=== PATIENT | female | born 2000 | race American Indian/Alaskan Native ===

== ENCOUNTER 2019-11-25 19:37 | Emergency (ER) | payer SELFPAY ==
--- NOTE | 2019-11-25 21:20 | Event Note ---
ED Screening Note Date of service: 11/25/19 Time: 21:20 ED Screening Note: Pt complains of pelvic pain and vaginal discharge x 1 week +dysuria This initial assessment/diagnostic orders/clinical plan/treatment(s) is/are subject to change based on patients health status, clinical progression and re- assessment by fellow clinical providers in the ED. Further treatment and workup at subsequent clinical providers discretion. Patient/guardian urged not to elope from the ED as their condition may be serious if not clinically assessed and managed. Initial orders include: ACC UA
[2019-11-25 22:19] LABS: HCG Qualitative,Urine Negative (Negative)
[2019-11-25 22:24] LABS: Bilirubin,Urine NEG (Negative); Blood,Urine NEG (Negative); Color,Urine Yellow (Yellow); Mucus,Urine 2+ /HPF; Protein,Urine <15 mg/dL mg/dL (Negative); Urobilinogen,Urine < 2.0 mg/dL (<2.0)
[2019-11-26] MEDS ORDERED: AZITHROMYCIN 250 MG TAB PO ONE (00:33)
[2019-11-26] MEDS ORDERED: LIDOCAINE-MPF (1%) 10 MG/1 ML VIAL 5 ML INFILTRATI ONE (00:33)
--- NOTE | 2019-11-26 00:35 | Emergency Department Report ---
ED Female HPI - General Chief complaint: Urogenital-Female Stated complaint: PELVIC PAIN/STD CHECK Time Seen by Provider: 11/25/19 21:21 Source: patient Mode of arrival: Ambulatory Limitations: No Limitations - History of Present Illness Initial comments: 18-year-old female presents to the ER today complaining of lower abdominal pain, and vaginal discharge. Patient states that her symptoms started 1 week ago. She reports intermittent lower abdominal cramping and sharp pain as well as a white vaginal discharge. She reports mild dysuria. She denies any abnormal vaginal bleeding. She denies any urgency, frequency or hematuria. She reports no low back pain, nausea, vomiting, fever, chills or any other symptoms at this time. Patient states that she would like to be checked for STDs. She denies any known exposure. She reports same sexual partner. Last menstrual cycle was 11/08/2019. She is no longer on control as of 3 months ago. MD Complaint: vaginal discharge, pelvic pain -: week(s) (1) - Related Data Previous Rx's Medication Instructions Recorded Last Taken Type metroNIDAZOLE [Flagyl] 500 mg PO Q12HR #14 tab 11/26/19 Unknown Rx Allergies Allergy/AdvReac Type Severity Reaction Status Date / Time No Known Allergies Allergy Verified 11/26/19 00:46 ED Review of Systems ROS: Stated complaint: PELVIC PAIN/STD CHECK Other details as noted in HPI Constitutional: denies: chills, fever Gastrointestinal: abdominal pain. denies: nausea, vomiting, diarrhea, constipation, hematochezia Genitourinary: dysuria, discharge. denies: urgency, frequency, hematuria, abnormal menses, dyspareunia Musculoskeletal: denies: back pain Neurological: denies: headache, weakness, numbness, paresthesias, confusion, abnormal gait, vertigo ED Past Medical Hx - Past Medical History Previous Medical History?: No - Surgical History Past Surgical History?: No - Social History Smoking Status: Never Smoker - Medications Home Medications: Home Medications Medication Instructions Recorded Confirmed Last Taken Type metroNIDAZOLE [Flagyl] 500 mg PO Q12HR #14 tab 11/26/19 Unknown Rx ED Physical Exam - General Limitations: No Limitations General appearance: alert, in no apparent distress - Head Head exam: Present: atraumatic, normocephalic - Eye Eye exam: Present: normal appearance, PERRL, EOMI Pupils: Present: normal accommodation - GI/Abdominal GI/Abdominal exam: Present: soft. Absent: distended, tenderness, guarding - External exam: Present: normal external exam Speculum exam: Present: vaginal discharge (small amt of white d/c). Absent: cervical discharge, vaginal bleeding, foreign body, tissue, laceration Bi-manual exam: Absent: cervical motion tendernes, adnexal tenderness, adnexal mass, uterine enlargement, uterine tenderness - Neurological Exam Neurological exam: Present: alert, oriented X3, CN II-XII intact, normal gait - Psychiatric Psychiatric exam: Present: normal affect, normal mood ED Course Vital Signs 11/25/19 11/26/19 20:07 02:06 Temperature 98.8 F 98.6 F Pulse Rate 65 70 Respiratory 18 16 Rate Blood Pressure 131/86 Blood Pressure 126/84 [Left] O2 Sat by Pulse 97 99 Oximetry Critical care attestation.: If time is entered above; I have spent that time in minutes in the direct care of this critically ill patient, excluding procedure time. ED Disposition Clinical Impression: Bacterial vaginosis Disposition: TO HOME OR SELFCARE Is pt being admited?: No Does the pt Need Aspirin: No Condition: Stable Instructions: Bacterial Vaginosis (ED) Prescriptions: metroNIDAZOLE [Flagyl] 500 mg PO Q12HR #14 tab Referrals: PRIMARY CARE, [Primary Care Provider] - 3-5 Days Forms: STI Treatment and Prevention Time of Disposition: 01:54
[2019-11-26] MEDS ORDERED: LIDOCAINE-MPF (1%) 10 MG/1 ML VIAL 5 ML ONE (00:43)
[2019-11-26] MEDS ORDERED: AZITHROMYCIN 1 GM ORAL PWDR PACKET ONE (00:43)
[2019-11-26 02:07] VITALS: BP 126/84
== END 2019-11-26 02:06 | disposition home or self-care (01) ==
LOC: ED 19:37
DX: N76.0 Acute vaginitis (principal)
CPT/HCPCS: 81001; 81025; 87210; 87591; 96372; 99284; J0696